=== PATIENT | male | born 1980 | race Two or more races ===

== ENCOUNTER 2024-06-08 19:07 | Emergency (ER) | payer OTHER ==
[~2024-06-08] VITALS: Ht 167.6 cm; Wt 86.4 kg
[2024-06-08 19:53] LABS: BASOPHILS % (AUTO) 0.1 % (0-1); EOSINOPHILS % (AUTO) 0.3 % (0-6); LYMPHOCYTES % (AUTO) 11.8 % (21-51); MEAN CORPUSCULAR HEMOGLOBIN 31.7 PG (27.0-31.0); MEAN CORPUSCULAR HGB CONC 34.4 g/dL (33.0-36.5); MEAN CORPUSCULAR VOLUME 92.1 FL (78-98); MEAN PLATELET VOLUME 9.1 FL (7.4-10.4); MONOCYTES # (AUTO) 0.9 X10'3 (0-0.9); MONOCYTES % (AUTO) 10.6 % (2-12); NEUTROPHILS # (AUTO) 6.5 X10'3 (1.8-7.7); NEUTROPHILS % (AUTO) 77.2 % (42-75); PLATELET COUNT 335 X10'3 (140-440); RED BLOOD COUNT 6.08 X10'6 (4.70-6.10); RED CELL DISTRIBUTION WIDTH 16.5 % (11.5-14.5); WHITE BLOOD COUNT 8.4 X10'3 (4.5-11.0)
[2024-06-08 19:59] LABS: HEMOGLOBIN 19.3 g/dl (14.0-17.9)
[2024-06-08 20:03] LABS: ALBUMIN 4.6 G/DL (3.4-5.0); ANION GAP 15 (8-16); BLOOD UREA NITROGEN 7 MG/DL (7-18); BUN/CREATININE RATIO 4.9 (10.0-20.0); CALCIUM 9.8 MG/DL (8.5-10.1); CHLORIDE 99 MMOL/L (99-107); CREATININE 1.42 MG/DL (0.60-1.10); GLUCOSE 115 MG/DL (70-104); POTASSIUM 3.7 MMOL/L (3.5-5.1); SODIUM 137 MMOL/L (135-145); TOTAL CARBON DIOXIDE 23.3 MMOL/L (24-32); eCRCL 61 ML/MIN; eGFR 54 ML/MIN
[2024-06-08] MEDS: normal saline 1000ML IV soln IVB ONE ×2 (20:10→21:00)
[2024-06-08] MEDS: morphine 2 MG/ML inj. syringe IV PRN (20:10)
[2024-06-08] MEDS: ondansetron/PF 4mg/2ml inj IV ONE ×2 (20:17→22:37)
[2024-06-08 20:22] LABS: ALANINE AMINOTRANSFERASE 56 U/L (12-78); ALBUMIN/GLOBULIN RATIO 1.2 (1.1-1.5); ALKALINE PHOSPHATASE 82 IU/L (46-116); ASPARTATE AMINO TRANSFERASE 39 U/L (10-37); BILIRUBIN,DIRECT 0.3 MG/DL (0-0.3); BILIRUBIN,TOTAL 1.3 MG/DL (0.1-1.0); ETHANOL < 10 MG/DL (<10); LIPASE 76 U/L (16-77); MAGNESIUM 1.9 MG/DL (1.5-2.4); TOTAL PROTEIN 8.6 G/DL (6.4-8.2)
[2024-06-08 22:21] LABS: BILIRUBIN,URINE SMALL (Neg); CLARITY,URINE CLEAR (Clear); COLOR,URINE YELLOW (Yellow); GLUCOSE, URINE 500 mg/dl (Neg); KETONES,URINE 40 mg/dl (Neg); LEUKOCYTE ESTERASE ,URINE NEGATIVE (Neg); NITRITES, URINE NEGATIVE (Neg); OCCULT BLOOD,URINE NEGATIVE (Neg); PH,URINE 8.5 (4.8-8.0); PROTEIN,URINE 30 mg/dl (Neg)
[2024-06-08 22:25] LABS: UA COLLECTION TYPE NON-SPECIFIED
[2024-06-08 22:27] LABS: BACTERIA,URINE FEW /HPF (Neg); HYALINE CASTS 0-3 /LPF (NEGATIVE); MUCUS STRANDS MANY /LPF (Neg); RBC,URINE 0-2 /HPF (0-2); SQUAMOUS EPITHELIAL CELL,UR FEW /LPF (FEW); WBC,URINE 0-4 /HPF (0-4)
[2024-06-08 22:33] LABS: URINE AMPHETAMINE SCREEN POSITIVE (Neg); URINE BARBITUATE SCREEN NEGATIVE (Neg); URINE BENZODIAZEPINES SCREEN NEGATIVE (Neg); URINE CANNABINOID SCREEN POSITIVE (Neg); URINE COCAINE SCREEN NEGATIVE (Neg); URINE METHADONE SCREEN NEGATIVE (Neg); URINE OPIATE SCREEN POSITIVE (Neg); URINE PHENCYCLIDINE SCREEN NEGATIVE (Neg)
[2024-06-08] MEDS ORDERED: ONDA-243 PO (23:59)
[2024-06-09] MEDS: normal saline 1000ML IV soln IVB ONE ×2 (00:11→00:19)
[2024-06-09] MEDS: LORazepam 2 mg/ml vial IV ONE (00:19)
[2024-06-09 01:33] VITALS: BP 139/92; PULSE 99; RESP 18; TEMP 98.2; O2SAT 97
== END 2024-06-09 01:39 | disposition home or self-care (01) ==
LOC: ER 19:08
DX: K52.89 Other specified noninfective gastroenteritis and colitis (principal); F15.10 Other stimulant abuse, uncomplicated; E86.0 Dehydration; F12.90 Cannabis use, unspecified, uncomplicated; Z79.899 Other long term (current) drug therapy; Z98.890 Other specified postprocedural states
CPT/HCPCS: 36415; 71045; 80048; 80076; 80305; 80320; 81001; 83605; 83690; 83735; 84145; 85025; 87040; 93005; 96361; 96374; 96375; 96376; 99285; J2060; J2270; J2405; J7030